=== PATIENT | female | born 1975 | race Caucasian/White ===

== ENCOUNTER → 2016-06-16 | Day surgery (SDC) | payer OTHER ==
[2016-05-30 10:40] VITALS: Ht 163.8 cm; Wt 63.6 kg
[2016-06-05 12:17] LABS: HEMATOCRIT 41.4 % (37-47); MEAN CELL VOLUME 86.4 fL (80-100); MEAN CORPUSCULAR HGB CONC 33.6 g/dl (32-36); MEAN PLATELET VOLUME 10.4 fL (7.4-10.4); PLATELET COUNT 397 K/uL (130-400); RED BLOOD COUNT 4.79 M/uL (4.2-5.4); WHITE BLOOD COUNT 8.31 K/uL (4.8-10.8)
[~2016-06-16] VITALS: Ht 163.8 cm; Wt 63.6 kg
[~2016-06-16] MED LIST: AMOX875T3 PO; ATROPINE SULFATE 0.1 MG/ML 5ML SYR IV PRN; BCPILLS PO; DEXAMETHASONE SOD INJ 4 MG/ML VIAL ONE; EpHEDrine SULFATE INJ 50 MG/ML AMP IV PRN; FENTANYL CITRATE INJ 50 MCG/1 ML 2 ML VIAL IV PRN; FENTANYL CITRATE INJ 50 MCG/1 ML 2 ML VIAL ONE; GLC500 PO; GLYCOPYRROLATE INJ 0.2 MG/ML VIAL ONE; IBUPROFEN 600 MG TAB PO PRN; INSDGI SC; KETOROLAC TROMETHAMINE 30 MG/ML VIAL IV. PRN; LACTATED RINGER'S 1000ML 1,000 ML IV SCH; LEVO125T72 PO; LIDOCAINE HCL 2% 2 ML VIAL (20MG/ML) ONE; MIDAZOLAM HCL 1 MG/ML 2ML VIAL ONE; NEOSTIGMINE METHYLSULFATE 5 MG/5 ML SYR ONE; ONDANSETRON INJ 2 MG/ML 2 ML VIAL IV PRN; ONDANSETRON INJ 2 MG/ML 2 ML VIAL ONE; OXYCODONE/ACETAMINOPHEN 5-325 TAB PO PRN; PROPOFOL IV EMULSION 10 MG/ML 20 ML VIAL IV ONE; SODIUM CHLORIDE 0.9% 1000ML 1,000 ML IV SCH; ZCR40 PO
--- NOTE | 2016-06-16 07:11 | History & Physical Bridge - [place] ---
H&P Re-Evaluation Bridge Note: I have examined the patient, reviewed the History & Physical and in the interval since the performance of the History & Physical I have noted the following changes of clinical significance: No changes noted
--- NOTE | 2016-06-16 07:53 | [facility] Post Operative Brief Note ---
Immediate Operative Summary Operative Date Jun 16, 2016. Pre-Operative Diagnosis 1. Desires sterilization 2. AUB Post-Operative Diagnosis same Procedure(s) Performed Bilateral Laparoscopic Tubal Sterilization, Mirena IUD insertion Surgeon Dr. Usama Arguello Business Services Specialist Sales Surgeon(s) MACK Pruett Estimated Blood Loss 0 Findings uterus sounds to 7cm, strings of mirena trimmed to 2.5cm. uterus with small anterior fibroid. nl ovaries bilaterally, nl fallopian tubes. nl liver edge. Fluids (cc crystalloids) 900 Specimens C&S Swab Vagina-for Chlamydia and Gonorrhea Drains none Anesthesia general Complication(s) None Disposition Recovery Room / PACU
--- NOTE | 2016-06-16 07:56 | Discharge Instructions ---
Discharge Instructions Admission Reason for Admission: Desires Sterilization Discharge Discharge Diagnosis / Problem: after surgery Discharge Goals Goal(s): Routine recovery after surgery Activity Recommendations Activity Limitations: as noted below . Instructions / Follow-Up Instructions / Follow-Up ACTIVITY RECOMMENDATIONS: * Rest the first 1-2 days. You should be back to your normal activity levels by day 3. * No heavy lifting for 2 weeks. * No intercourse, tampons or douching for 1 week. * You may shower the next day. * Do not drive anytime that you are taking narcotic pain medicines. RETURN TO SCHOOL/WORK: * May return to school or work after 1-2 days. DIET: Nausea may occur in the immediate post-operative period. If so, take clear liquids such as tea, bouillon, apple juice until all nausea has subsided, then resume usual diet. MEDICATIONS: Resume previous medications unless instructed otherwise by your surgeon. Ibuprofen 200mg 2-3 tablets every 4-6 hours as needed -- OR -- Aleve 2 tablets every 8-12 hours as needed for post-operative discomfort Medications are over the counter. Tylenol may be used if above medications are contraindicated or not preferred. Medication should be taken with food or milk. Do not take on an empty stomach. SPECIAL CARE INSTRUCTIONS: * Check temperature twice daily for one week. report any elevation over 101 degrees. * You may experience some vagina spotting and/or bleeding. This is normal for 1 -2 weeks and should not be heavier than a normal period. If it is unusual in amount, call your physician. * Post-operative discomfort may consist of a sore throat, a "bloated" feeling and pain in the shoulders. these are normal symptoms, which usually only last for 2-3 days. * Remove band-aids tomorrow and shower. There is no need to replace band-aids unless there is drainage or discomfort. FOLLOW UP VISIT: Call your doctor's office for a post-operative 4 week visit if not already scheduled. Current Hospital Diet Patient's current hospital diet: Discharge Diet Recommended Diet: Regular Diet Procedures Procedures Performed: Bilateral Laparoscopic Tubal Sterilization, Mirena IUD insertion Pending Studies Studies pending at discharge: yes List of pending studies: RNA probe for infection Laboratory Results Hemoglobin A1c Test 05/14/16 09:19 Range/Units Estimated Average Glucose 180 mg/dl Hemoglobin A1c 7.9 H 4.5-5.6 % Medical Emergencies . Who to Call and When: Medical Emergencies: If at any time you feel your situation is an emergency, please call 911 immediately. . Non-Emergent Contact Non-Emergency issues call your: Primary Care Provider, Ethylene Plant Operator Call Non-Emergent contact if: you have a fever . . "Provider Documentation" section prepared by Haley Arguello. VTE Core Measure Inpt VTE Proph given/why not?: Treatment not indicated
--- NOTE | 2016-06-16 08:13 | OPERATIVE REPORT ---
DATE OF OPERATION: 06/16/2016 PREOPERATIVE DIAGNOSES: 1. Desires sterilization. 2. Abnormal uterine bleeding. POSTOPERATIVE DIAGNOSIS: Same. PROCEDURES: 1. Bilateral laparoscopic tubal coagulation. 2. Mirena IUD insertion. SURGEON: Dr. Haley Arguello. MECHANICAL DESIGN ENGINEER: Medical student. INTRAVENOUS FLUIDS: 900 mL ESTIMATED BLOOD LOSS: 0 mL ANESTHESIA: General. FINDINGS: Uterus sounds to 7 cm. Mirena IUD strings trimmed to 2.5 cm. Normal uterus with small anterior fibroid, normal fallopian tubes and ovaries bilaterally. Normal liver edge. INDICATIONS: A 41-year-old 2, para 2 who has history of heavy menstrual bleeding as well as need for contraception. Recently on her combination oral contraceptive pill she has had elevated blood pressure and was recommended to remove the control pill due to risks associated with elevated blood pressure. For that reason, she desired permanent sterilization but because of her history of heavy bleeding , she desired placement of a Mirena IUD to see if that could help with her heavy cycles as well. PROCEDURE: The patient was taken to the operating room and identified. After adequate general anesthesia, the patient was placed in dorsal lithotomy position and an RNA probe for GC/CT was obtained. She was then prepped and draped in the usual sterile fashion. The cervix was visualized, grasped on its anterior lip with an Allis clamp. The uterus was sounded to 7 cm. The Mirena IUD device was readied and placed in the usual fashion. The strings were trimmed. The acIdeaOffer uterine manipulator was gently placed through the cervical os and connected to the Allis clamp to allow for uterine manipulation. The retractors were removed. The bladder had already been drained under sterile conditions for clear yellow urine. A incision was mad infraumbilically using the scalpel. The Veress needle was placed intraperitoneally with an opening pressure of 5 mmHg. A CO2 pneumoperitoneum was created. The optical trocar with the camera was placed into the peritoneal cavity and the patient was placed in Trendelenburg. Using the operative scope a blunt probe was used to tease the bowel away from the planned operative sites. Using the uterine manipulator to put the right fallopian tube on stretch, the right fallopian tube was identified to its fimbriated end. It was coagulated in approximately a 3 cm segment 2-3 cm from the right cornu. The left fallopian tube was identified in a similar fashion, coagulated in a similar fashion. A Kuotus forceps with an impedance monitor was used. The pelvis and abdomen had been inspected with the findings as noted above. At this point the procedure was terminated. The CO2 gas was allowed to escape from the patient's abdomen and the trocar was removed. The infraumbilical incision was reapproximated first in the subcutaneous tissue with interrupted suture of 0 Vicryl followed by in subcuticular fashion at the skin level with 4-0 Vicryl. The vaginal instruments were then removed. The patient was returned to the supine position, she was awoke from her anesthesia and transferred to the recovery room in stable condition. All sponge, lap and needle counts were correct x2. I attest to the content of the Intraoperative Record and any orders documented therein. Any exceptions are noted below. OSMIN
[2016-06-16 08:43] VITALS: TEMP 36.5
[2016-06-16 09:01] VITALS: BP 125/81; PULSE 60; O2SAT 97
--- NOTE | 2016-06-16 09:02 | Medical Student: [facility] ---
Immediate Operative Summary Operative Date Jun 16, 2016. Pre-Operative Diagnosis AUB and sterilization Post-Operative Diagnosis AUB and sterilization Procedure(s) Performed Mirena placement Bilateral Laparoscopic Tubal Ligation Surgeon Dr. Haley Arguello Induction Furnace Operator Surgeon(s) Mayra Pratt MS3 Estimated Blood Loss 0 Findings Mirena is placed. Normal internal structures - normal ovaries, uterus, fallopian tubes cauterized. Fluids (cc crystalloids) 900 Specimens Gonorrhea/Chlamydia Vaginal Culture Anesthesia general Complication(s) None Disposition Recovery Room / PACU
--- NOTE | 2016-06-16 09:04 | Anesthesia Progress Nt - [facility] ---
Anesthesia Post Op Note Date & Time Jun 16, 2016 at 09:04 Vital Signs Pain Intensity: 0 Vital Signs Past 12 Hours Date Time Temp Pulse Resp B/P Pulse Ox O2 Delivery O2 Flow Rate FiO2 06/16/16 09:01 60 16 125/81 97 Room Air 06/16/16 08:43 36.5 77 16 118/80 96 Room Air 06/16/16 08:34 64 21 124/72 96 06/16/16 08:34 36.8 06/16/16 08:32 61 18 06/16/16 08:32 60 18 96 06/16/16 08:28 126/71 06/16/16 08:27 62 24 97 06/16/16 08:27 62 24 06/16/16 08:23 128/75 06/16/16 08:22 65 23 06/16/16 08:22 65 23 95 06/16/16 08:19 137/69 06/16/16 08:17 63 22 97 06/16/16 08:17 63 22 06/16/16 08:13 129/67 06/16/16 08:12 63 23 100 06/16/16 08:12 63 23 06/16/16 08:08 122/68 06/16/16 08:07 67 26 100 06/16/16 08:07 67 26 06/16/16 08:03 128/69 06/16/16 08:02 78 26 06/16/16 08:02 78 26 100 06/16/16 07:58 131/72 06/16/16 07:57 83 24 100 06/16/16 07:57 36.5 83 12 127/84 100 Room Air 06/16/16 07:57 83 24 06/16/16 06:29 36.6 102 18 126/67 97 Room Air Notes Mental Status: alert / awake / arousable, participated in evaluation Pt Amnestic to Procedure: Yes Nausea / Vomiting: adequately controlled Pain: adequately controlled Airway Patency, RR, SpO2: stable & adequate BP & HR: stable & adequate Hydration State: stable & adequate Anesthetic Complications: no major complications apparent
--- NOTE | 2016-06-16 11:13 | Anesthesiology Progress Note ---
Anesthesia Post Op Note Date & Time Jun 16, 2016 at 11:13 Vital Signs Pain Intensity: 0 Vital Signs Past 12 Hours Date Time Temp Pulse Resp B/P Pulse Ox O2 Delivery O2 Flow Rate FiO2 06/16/16 09:01 60 16 125/81 97 Room Air 06/16/16 08:43 36.5 77 16 118/80 96 Room Air 06/16/16 08:34 64 21 124/72 96 06/16/16 08:34 36.8 06/16/16 08:32 61 18 06/16/16 08:32 60 18 96 06/16/16 08:28 126/71 06/16/16 08:27 62 24 97 06/16/16 08:27 62 24 06/16/16 08:23 128/75 06/16/16 08:22 65 23 06/16/16 08:22 65 23 95 06/16/16 08:19 137/69 06/16/16 08:17 63 22 97 06/16/16 08:17 63 22 06/16/16 08:13 129/67 06/16/16 08:12 63 23 100 06/16/16 08:12 63 23 06/16/16 08:08 122/68 06/16/16 08:07 67 26 100 06/16/16 08:07 67 26 06/16/16 08:03 128/69 06/16/16 08:02 78 26 06/16/16 08:02 78 26 100 06/16/16 07:58 131/72 06/16/16 07:57 83 24 100 06/16/16 07:57 36.5 83 12 127/84 100 Room Air 06/16/16 07:57 83 24 06/16/16 06:29 36.6 102 18 126/67 97 Room Air
[2016-06-20 02:46] LABS: CHLAMYDIA TRACH RNA*** NOT DETECTED (NOT DETECTED); GC (NEIS GONORRHOEAE)RNA** NOT DETECTED (NOT DETECTED)
== END | disposition home or self-care (01) ==
LOC: X.SURG 06:10
PROVIDERS: ATTEND Obstetrics & Gynecology
DX: Z30.2 Encounter for sterilization (principal); N93.9 Abnormal uterine and vaginal bleeding, unspecified; E11.9 Type 2 diabetes mellitus without complications; E78.5 Hyperlipidemia, unspecified; Z68.23 Body mass index [BMI] 23.0-23.9, adult; Z85.850 Personal history of malignant neoplasm of thyroid; Z88.5 Allergy status to narcotic agent; Z90.89 Acquired absence of other organs; Z83.3 Family history of diabetes mellitus; Z80.8 Family history of malignant neoplasm of other organs or systems; Z82.49 Family history of ischemic heart disease and other diseases of the circulatory system; Z87.891 Personal history of nicotine dependence; Z79.4 Long term (current) use of insulin

== ENCOUNTER → 2016-08-05 | Outpatient (CLI) | payer OTHER ==
[~2016-08-05] MED LIST changes: -ATROPINE SULFATE 0.1 MG/ML 5ML SYR IV PRN; -BCPILLS PO; -DEXAMETHASONE SOD INJ 4 MG/ML VIAL ONE; -EpHEDrine SULFATE INJ 50 MG/ML AMP IV PRN; -FENTANYL CITRATE INJ 50 MCG/1 ML 2 ML VIAL IV PRN; -FENTANYL CITRATE INJ 50 MCG/1 ML 2 ML VIAL ONE; -GLYCOPYRROLATE INJ 0.2 MG/ML VIAL ONE; -IBUPROFEN 600 MG TAB PO PRN; -KETOROLAC TROMETHAMINE 30 MG/ML VIAL IV. PRN; -LACTATED RINGER'S 1000ML 1,000 ML IV SCH; -LIDOCAINE HCL 2% 2 ML VIAL (20MG/ML) ONE; -MIDAZOLAM HCL 1 MG/ML 2ML VIAL ONE; -NEOSTIGMINE METHYLSULFATE 5 MG/5 ML SYR ONE; -ONDANSETRON INJ 2 MG/ML 2 ML VIAL IV PRN; -ONDANSETRON INJ 2 MG/ML 2 ML VIAL ONE; -OXYCODONE/ACETAMINOPHEN 5-325 TAB PO PRN; -PROPOFOL IV EMULSION 10 MG/ML 20 ML VIAL IV ONE; -SODIUM CHLORIDE 0.9% 1000ML 1,000 ML IV SCH
[2016-08-05 11:22] LABS: ESTIMATED AVERAGE GLUCOSE 183 mg/dl; HA1C FLAG Normal (Normal)
[2016-08-05 11:24] LABS: THYROID STIMULATING HORMONE 0.031 uIu/ml (0.300-4.500)
== END | disposition home or self-care (01) ==
LOC: C.LAB1850 09:44
PROVIDERS: ATTEND Internal Medicine Endocrinology, Diabetes & Metabolism
DX: E11.9 Type 2 diabetes mellitus without complications (principal)

== ENCOUNTER 2016-08-16 07:18 | Emergency (ER) | payer OTHER ==
[~2016-08-16] VITALS: Ht 163.8 cm; Wt 63.8 kg
[~2016-08-16 07:18] MED LIST changes: -AMOX875T3 PO
[2016-08-16 07:21] VITALS: BP 130/80; PULSE 109; TEMP 36.5; O2SAT 98; Ht 163.8 cm; Wt 63.8 kg
[2016-08-16] MEDS ORDERED: AMOX875T3 PO (07:40)
--- NOTE | 2016-08-16 08:05 | EMERGENCY ROOM VISIT NOTE ---
History First contact with patient: 07:31 Chief Complaint: NECK PAIN Stated Complaint: LUMP IN NECK History of Present Illness The patient is a 41 year old female who presents to the Emergency Room with complaints of neck pain, and a small bump under her right ear. She reports this started yesterday and she also had congestion prior to this. She was concerned she may have mumps due to the outbreak at [facility]. She has not been in contact with anyone who has mumps and has received her vaccinations. 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 She denies any swelling to the neck on either side. She denies any fevers, chest pain, shortness of breath. She also denies cough. She reports associated neck pain when moving her head side to side but she does not have a headache or neck stiffness. Her family physician is Dr. Dinh. Review of Systems See HPI for pertinent positives & negatives. A total of 10 systems reviewed and were otherwise negative. Past Medical/Surgical History section, tubal ligation Family History No pertinent family history Social History Smoking Status: Never Smoker Marital Status: Housing Status: lives with family Occupation Status: employed Current/Historical Medications Scheduled Amoxicillin (Amoxil), 1 TAB PO BID Insulin Glargine (Lantus), 30 UNITS SC HS Levothyroxine Sodium (Synthroid), 125 MCG PO QAM Metformin HCL (Glucophage *), 1,000 MG PO BID Simvastatin (Simvastatin), 40 MG PO HS Allergies Coded Allergies: Tetanus Toxoid (Verified Allergy, Mild, 08/16/16) Codeine (Verified Adverse Reaction, Mild, NAUSEA, 08/16/16) Morphine (Verified Adverse Reaction, Mild, NAUSEA, 08/16/16) Physical Exam Vital Signs Date Time Temp Pulse Resp B/P Pulse Ox O2 Delivery O2 Flow Rate FiO2 08/16/16 07:21 36.5 109 18 130/80 98 Room Air Physical Exam GENERAL: Awake, alert, well-appearing, in no acute distress HENT: Normocephalic, atraumatic. Oropharynx unremarkable. Tympanic membranes on the left is haddad and intact, on right external canal is erythematous and a small effusion is noted behind the eardrum. No evidence of parotitis. Small < 1cm mobile, soft, mass noted posterior to R ear. Nontender to palpation, not fixed to skin. EYES: Normal conjunctiva. Sclera non-icteric. NECK: Supple. No nuchal rigidity. FROM. No JVD. RESPIRATORY: Clear to auscultation. CARDIAC: Regular rate, normal rhythm. Extremities warm and well perfused. Pulses equal. RECTAL: Deferred. MUSCULOSKELETAL: Chest examination reveals no tenderness. The back is symmetrical on inspection without obvious abnormality. There is no CVA tenderness to palpation. No joint edema. Now no months LOWER EXTREMITIES: Calves are equal size bilaterally and non-tender. No edema. No discoloration. NEURO: Normal sensorium. No sensory or motor deficits noted. SKIN: No rash or jaundice noted. Medical Decision & Procedures ED Course 7:20: The patient was evaluated in room B10. A complete history and physical was performed. 8:00: Dr Godinez examined the patient. The patient was provided with a prescription for Amoxicillin for 7 days and was discharged home in good condition. Medical Decision 41-year-old female with right-sided neck pain, ear pain, and congestion. Found to have a Right sided ear infection and likely a reactive lymph node. Differential includes: acute otitis media, otitis externa, parotitis, reactive lymphadenopathy. The patients exam fit with otitis media. She was concerned about having mumps, and I offered to do the tests for mumps which she denied. We discussed the signs and symptoms of mumps extensively. She was given a prescription for Amoxicillin for 7 days BID. She was advised to follow up with her PCP if there was no improvement in a week. She was discharged home in good condition. Impression Primary Impression: Ear infection Departure Information Dispostion Home / Self-Care Condition GOOD Prescriptions Amoxicillin (AMOXIL) 875 Mg Tab 1 TAB PO BID for 7 Days, #14 TAB Prov: Yelitza Vitale MD 08/16/16 Forms WORK / SCHOOL INSTRUCTIONS, HOME CARE DOCUMENTATION FORM, IMPORTANT VISIT INFORMATION Patient Instructions Ear Infection - [facility], [facility] Resident Tracking Resident Involvement: Resident Care Provided Care Provided: Adult ED
--- NOTE | 2016-08-16 08:28 | EMERGENCY ROOM VISIT NOTE ---
ED Visit Note First contact with patient: 07:30 Resident Physician Supervision Note: I was present with Dr. Vitale during the history and exam. I discussed the case with the resident and agree with the findings and plan as documented in the note. Documented By: Jatinder Godinez
== END 2016-08-16 08:08 | disposition home or self-care (01) ==
LOC: C.EDB 07:19
DX: H66.91 Otitis media, unspecified, right ear (principal); Z98.51 Tubal ligation status

== ENCOUNTER → 2016-08-19 | Outpatient (CLI) | payer OTHER ==
[~2016-08-19] MED LIST changes: +AMOX875T3 PO
--- NOTE | 2016-08-20 07:40 | MAMMOGRAPHY REPORT ---
BILATERAL DIGITAL SCREENING MAMMOGRAM TOMOSYNTHESIS WITH CAD: 08/19/2016 CLINICAL HISTORY: Routine screening examination. TECHNIQUE: Breast tomosynthesis in addition to standard 2D mammography was performed. Current study was also evaluated with a Computer Aided Detection (CAD) system. COMPARISON: Comparison is made to exam dated: 08/17/2015 mammogram - [facility]. BREAST COMPOSITION: The tissue of both breasts is heterogeneously dense, which may obscure small ma sses. FINDINGS: The parenchymal pattern is unchanged. No developing mass, architectural distortion or clu ster of suspicious microcalcifications is seen in either breast. IMPRESSION: ACR BI-RADS CATEGORY 2: BENIGN There is no mammographic evidence of malignancy. A 1 year screening mammogram is recommended. The p atient will receive written notification of the results. Approximately 10% of breast cancers are not detected with mammography. A negative mammographic repor t should not delay biopsy if a clinically suggestive mass is present. Charity Mckay M.D. ay/:08/19/2016 16:42:16 Sugar Grinder: Desiree MARIE(Hi)(Bertha), [facility] letter sent: Normal 1/2 BI-RADS Code: ACR BI-RADS Category 2: Benign
== END | disposition home or self-care (01) ==
LOC: C.MAMM 09:30
PROVIDERS: ATTEND Internal Medicine
DX: Z12.31 Encounter for screening mammogram for malignant neoplasm of breast (principal)

== ENCOUNTER → 2017-02-24 | Outpatient (CLI) | payer OTHER ==
[~2017-02-24] MED LIST changes: -AMOX875T3 PO
== END | disposition home or self-care (01) ==
LOC: C.PAPS 15:27
PROVIDERS: ATTEND Physician Assistant
DX: Z12.4 Encounter for screening for malignant neoplasm of cervix (principal)